=== PATIENT | male | born 1975 | race Asian ===

== ENCOUNTER 2018-06-04 09:32 | Outpatient (CLI) | payer BC ==
--- NOTE | 2018-06-04 12:17 | ULT ---
ULTRASOUND HEPATIC DOPPLER: HISTORY: Hepatitis C. COMPARISON: None. TECHNIQUE: Real-time, da silva scale, color flow, and spectral analysis of the liver was performed. FINDINGS: The aorta and IVC are not well seen. The pancreas is not well seen. Hepatic contour is nodular. There is coarsened echotexture. No mass is appreciated. The liver olga ures 15.5 cm in length. The portal veins are patent with antegrade flow. Normal phasicity. Normal appearance of the hepatic artery waveform. The common bile duct measures 4 mm. Cholesterol polyps are noted in the gallbladder with some adenomyomatosis. The spleen measures 13.6 cm in length. There is some small volume pericholecystic fluid. IMPRESSION: 1. Hepatic sclerosis without mass. 2. Thickened gallbladder wall with small volume pericholecystic fluid, likely the sequelae of underl laura cirrhosis and hepatic dysfunction. 3. Normal phasicity and directional flow. POS: [facility]
== END 2018-06-04 09:33 | disposition home or self-care (01) ==
LOC: ULT 09:32
PROVIDERS: ATTEND Internal Medicine Gastroenterology
DX: B18.2 Chronic viral hepatitis C (principal); K74.1 Hepatic sclerosis; K82.9 Disease of gallbladder, unspecified
CPT/HCPCS: 76705

== ENCOUNTER 2018-12-31 14:19 | Outpatient (CLI) | payer BC ==
[~2018-12-31 14:19] MED LIST: Gadobenate Dimeglumine 529 MG/1 ML (20ML VIAL) ONE
--- NOTE | 2018-12-31 17:12 | MRI ---
MRI ABDOMEN WITHOUT AND WITH CONTRAST: Date: )12/31/18 COMPARISON: None. HISTORY: Hepatic ultrasound dated 06/04/18. HISTORY: Cirrhosis of the liver. TECHNIQUE: Multiplanar, multisequence MR images were obtained of the abdomen without and with IV contrast. FINDINGS: The liver has a smooth contour without significant nodularity. A small amount of fluid is seen adjace nt to the liver. No focal liver lesions are seen. No intrahepatic biliary dilatation is present. The gallbladder, kidneys, adrenal glands, spleen, and pancreas are unremarkable. No abdominal adenopa thy is seen. No marrow signal abnormality is present. IMPRESSION: No significant hepatic abnormality identified on this examination. POS: [facility]
== END 2018-12-31 14:20 | disposition home or self-care (01) ==
LOC: SCSMRI 14:19
PROVIDERS: ATTEND Physician Assistant Medical
DX: I85.00 Esophageal varices without bleeding (principal); K74.60 Unspecified cirrhosis of liver; B18.2 Chronic viral hepatitis C
CPT/HCPCS: 74183; A9577